=== PATIENT | female | born 1985 | race African-American/Black ===

== ENCOUNTER 2017-01-29 18:20 | Emergency (ER) | payer OTHER ==
[2017-01-29] MEDS ORDERED: Ibuprofen 200 MG TAB ONE (18:48)
--- NOTE | 2017-01-29 20:41 | RAD ---
THREE VIEWS LEFT FOOT: History: [place] fell on top of foot. Pain. Comparison: None. FINDINGS: Lisfranc alignment is maintained. Joint spaces are preserved. No fracture. No cortical irregularity or periosteal reaction. Dorsal midfoot soft tissue swelling is noted. IMPRESSION: 1. No fracture. 2. Dorsal midfoot soft tissue swelling. POS: [facility]
== END 2017-01-29 19:10 | disposition home or self-care (01) ==
LOC: ERS 18:20
DX: S93.602A Unspecified sprain of left foot, initial encounter (principal)

== ENCOUNTER 2017-12-07 07:49 | Emergency (ER) | payer OTHER | END 2017-12-07 09:20 | disposition home or self-care (01) | LOC: ERS 07:49 | DX: H61.22 Impacted cerumen, left ear (principal) | CPT/HCPCS: 69210 ==

== ENCOUNTER 2019-10-23 22:34 | Emergency (ER) | payer OTHER | END 2019-10-23 23:03 | disposition home or self-care (01) | LOC: ERS 22:34 | DX: S50.12XA Contusion of left forearm, initial encounter (principal); W23.0XXA Caught, crushed, jammed, or pinched between moving objects, initial encounter | CPT/HCPCS: 99283 ==

== ENCOUNTER 2020-03-09 17:08 | Emergency (ER) | payer OTHER ==
--- NOTE | 2020-03-09 17:42 | RAD ---
EXAM: 4 views of the left knee HISTORY: Knee pain after fall COMPARISON: None FINDINGS: No knee effusion is seen. There is no evidence of acute fracture or dislocation. No signifi cant degenerative changes are seen. A small bony excrescence projects off the proximal left fibula. Mild lateral soft tissue swelling is present. IMPRESSION: No evidence of acute osseous abnormality.
== END 2020-03-09 18:06 | disposition home or self-care (01) ==
LOC: ERS 17:08
DX: S80.02XA Contusion of left knee, initial encounter (principal); W19.XXXA Unspecified fall, initial encounter

== ENCOUNTER 2021-08-30 14:26 | Emergency (ER) | payer OTHER | END 2021-08-30 17:58 | disposition home or self-care (01) | LOC: ERS 14:26 | DX: M65.88 Other synovitis and tenosynovitis, other site (principal) ==

== ENCOUNTER 2023-09-04 19:30 | Emergency (ER) | payer SELFPAY ==
[2023-09-04 20:58] LABS: #Basophils 0.03 10x3/uL (0.0-0.2); %Basophils 0.2 % (0.0-1.0); %Eosinophils 0.4 % (0.0-10.0); %Lymphocytes 12.9 % (21.0-51.0); %Monocytes 7.9 % (0.0-10.0); %Neutrophils 78.2 % (42.0-75.0); Hematocrit 40.3 % (36.0-47.0); Hemoglobin 13.5 g/dL (12.0-16.0); Mean Corpuscular HGB CONC 33.5 g/dL (32.0-36.0); Mean Corpuscular Hemoglobin 25.9 pg (27.0-31.0); Mean Corpuscular Volume 77.4 fL (78.0-98.0); Mean Platelet Volume 10.1 fL (7.4-10.4); Platelet Count 290 10x3/uL (130-400); RBC Distribution Width 14.8 % (11.5-14.5); Red Blood Cell (RBC) Count 5.21 mill/uL (4.20-5.40)
[2023-09-04] MEDS ORDERED: Ketorolac Tromethamine 30 MG (1 mL) VIAL ONE (21:01)
[2023-09-04 21:14] LABS: ALT (SGPT) 17 U/L (8-55); AST (SGOT) 15 U/L (5-34); Albumin 3.8 g/dL (3.5-5.0); Alkaline Phosphatase 127 U/L (40-110); Anion Gap 15 mmol/L (10-20); BUN (Urea Nitrogen) 8 mg/dL (7.0-18.7); Bilirubin, Total 1.1 mg/dL (0.2-1.2); Calc. Creatinine Clearance 0 mL/min (70-130); Calcium 9.2 mg/dL (7.8-10.44); Carbon Dioxide 23 mmol/L (22-29); Chloride 106 mmol/L (98-107); Estimated GFR 99; Globulin 3.6 g/dL (2.4-3.5); Glucose 94 mg/dL (70-105); Lipase 11 U/L (8-78); Protein, Total 7.4 g/dL (6.0-8.3); Sodium 140 mmol/L (136-145)
[2023-09-04 21:18] LABS: Troponin I Less than 0.010 ng/mL (< 0.028)
== END 2023-09-04 21:53 | disposition home or self-care (01) ==
LOC: ERS 19:30
DX: M62.838 Other muscle spasm (principal)
CPT/HCPCS: 71045; 80053; 83690; 83880; 84484; 85025; 93005; 96374; J1885

== ENCOUNTER 2024-04-25 12:14 | Emergency (ER) | payer OTHER, SELFPAY | END 2024-04-25 13:53 | disposition home or self-care (01) | LOC: ERS 12:14 | DX: J11.1 Influenza due to unidentified influenza virus with other respiratory manifestations (principal) | CPT/HCPCS: 87428; 99283 ==

== ENCOUNTER 2024-11-09 01:59 | Inpatient (IN) | payer OTHER ==
[2024-11-09 03:05] LABS: #Basophils 0.06 10x3/uL (0.0-0.2); #Eosinophils 2.03 10x3/uL (0.0-0.7); #Monocytes 1.27 10x3/uL (0.11-0.59); #Neutrophils 11.27 10x3/uL (1.40-6.50); %Basophils 0.4 % (0.0-1.0); %Eosinophils 12.0 % (0.0-10.0); %Lymphocytes 12.8 % (21.0-51.0); %Monocytes 7.5 % (0.0-10.0); %Neutrophils 66.9 % (42.0-75.0); Hematocrit 38.9 % (36.0-47.0); Hemoglobin 12.7 g/dL (12.0-16.0); Mean Corpuscular Hemoglobin 24.5 pg (27.0-31.0); Mean Corpuscular Volume 75.1 fL (78.0-98.0); Platelet Count 360 10x3/uL (130-400); Red Blood Cell (RBC) Count 5.18 mill/uL (4.20-5.40); White Blood Cell (WBC) Count 16.85 10x3/uL (4.8-10.8)
[2024-11-09 03:19] LABS: BHCG - Serum Negative (NEGATIVE); Pregs Control Background? CLEAR/WHITE (CLR/WHITE); Pregs Control Bar Appear? YES (CONTROL BAR)
[2024-11-09] MEDS ORDERED: Ketorolac Tromethamine 30 MG (1 mL) VIAL ONE (03:55)
[2024-11-09 04:06] LABS: ALT (SGPT) 49 U/L (Less than 34); AST (SGOT) 65 U/L (11-34); Albumin 3.4 g/dL (3.1-4.5); Alkaline Phosphatase 180 U/L (40-110); Anion Gap 16 mmol/L (10-20); BUN (Urea Nitrogen) 5 mg/dL (7.0-18.7); Bilirubin, Total 0.6 mg/dL (0.3-1.2); Calc. Creatinine Clearance 0 mL/min (70-130); Calcium 8.7 mg/dL (7.8-10.44); Carbon Dioxide 22 mmol/L (22-29); Chloride 105 mmol/L (98-107); Globulin 3.8 g/dL (2.4-3.5); Glucose 116 mg/dL (70-105); Lipase 13 U/L (8-78); Potassium 3.8 mmol/L (3.5-5.1); Sodium 139 mmol/L (136-145)
[2024-11-09] MEDS ORDERED: Aspirin Chewable 81 MG TAB ONE (04:26)
[2024-11-09 06:18] VITALS: BMI 49.1
[2024-11-09] MEDS ORDERED: Ondansetron ORAL SOLN. 4 MG/5 ML UDCUP PO PRN (06:45)
[2024-11-09 07:40] LABS: Hematocrit 39.5 % (36.0-47.0); Hemoglobin 12.5 g/dL (12.0-16.0); Platelet Count 334 10x3/uL (130-400)
[2024-11-09] MEDS: Heparin 10,000 UNITS/ 10 ML VIAL SLOW IVP SCH (08:19)
[2024-11-09] MEDS: Rosuvastatin 20 MG TAB PO ONE (09:21)
[2024-11-09] MEDS ORDERED: Iopamidol 370 76% 100 ML VIAL ONE (10:20)
[2024-11-09] MEDS ORDERED: EPINEPHrine 1 MG/10 ML Abboject SYRINGE ONE (10:39)
[2024-11-09] MEDS ORDERED: Adenosine 6 mg (2 mL) VIAL ONE (10:39)
[2024-11-09] MEDS ORDERED: PHENYLEPHRINE-NS 100 MCG/ML 10 ML SYRINGE ONE (10:40)
[2024-11-09] MEDS ORDERED: Lidocaine 1% (PF) 30 ML VIAL ONE (10:40)
[2024-11-09] MEDS ORDERED: Nitroglycerin 50 MG/250 ML BOT 250 ML ONE (10:40)
[2024-11-09] MEDS ORDERED: Heparin 10,000 UNITS/ 10 ML VIAL ONE (10:40)
[2024-11-09] MEDS: Acetaminophen 500 MG TAB PO SCH (13:35)
[2024-11-09] MEDS: Rosuvastatin 20 MG TAB PO SCH (22:14)
[2024-11-10] MEDS: Cyclobenzaprine 10 MG TAB PO SCH (00:14)
[2024-11-10 04:04] LABS: #Basophils 0.05 10x3/uL (0.0-0.2); #Eosinophils 1.16 10x3/uL (0.0-0.7); #Monocytes 1.21 10x3/uL (0.11-0.59); #Neutrophils 10.72 10x3/uL (1.40-6.50); %Basophils 0.3 % (0.0-1.0); %Eosinophils 7.6 % (0.0-10.0); %Lymphocytes 14.1 % (21.0-51.0); %Monocytes 7.9 % (0.0-10.0); %Neutrophils 69.8 % (42.0-75.0); Hematocrit 39.8 % (36.0-47.0); Hemoglobin 12.5 g/dL (12.0-16.0); Mean Corpuscular Hemoglobin 23.8 pg (27.0-31.0); Mean Corpuscular Volume 75.8 fL (78.0-98.0); Platelet Count 346 10x3/uL (130-400); Red Blood Cell (RBC) Count 5.25 mill/uL (4.20-5.40); White Blood Cell (WBC) Count 15.36 10x3/uL (4.8-10.8)
[2024-11-10 04:38] LABS: ALT (SGPT) 37 U/L (Less than 34); AST (SGOT) 51 U/L (11-34); Albumin 3.1 g/dL (3.1-4.5); Alkaline Phosphatase 154 U/L (40-110); Anion Gap 14 mmol/L (10-20); BUN (Urea Nitrogen) 6 mg/dL (7.0-18.7); Bilirubin, Total 0.6 mg/dL (0.3-1.2); Calc. Creatinine Clearance 217 mL/min (70-130); Calcium 8.9 mg/dL (7.8-10.44); Carbon Dioxide 26 mmol/L (22-29); Chloride 104 mmol/L (98-107); Globulin 3.5 g/dL (2.4-3.5); Glucose 109 mg/dL (70-105); Potassium 4.0 mmol/L (3.5-5.1); Sodium 140 mmol/L (136-145)
[2024-11-10 06:45] LABS: CK (CPK) 347.0 U/L (29-168); Cardiac Risk 5.9 (Less than 4.5); Cholesterol 170.0 mg/dl (< 200 Desired); HDL Cholesterol 29.0 mg/dL (>60 Neg Risk); LDL Cholesterol, Calculated 109.0 mg/dL; Triglycerides 161.0 mg/dL (Less than 150)
[2024-11-10] MEDS: Aspirin 81 mg Enteric Coated Tablet PO SCH (08:43)
[2024-11-10] MEDS: Acetaminophen 325 MG TAB PO SCH (20:48)
[2024-11-11 05:10] LABS: #Basophils 0.05 10x3/uL (0.0-0.2); #Eosinophils 1.14 10x3/uL (0.0-0.7); #Monocytes 1.15 10x3/uL (0.11-0.59); #Neutrophils 8.86 10x3/uL (1.40-6.50); %Basophils 0.4 % (0.0-1.0); %Eosinophils 8.4 % (0.0-10.0); %Lymphocytes 17.5 % (21.0-51.0); %Monocytes 8.4 % (0.0-10.0); %Neutrophils 64.9 % (42.0-75.0); Hematocrit 40.5 % (36.0-47.0); Hemoglobin 12.8 g/dL (12.0-16.0); Mean Corpuscular Hemoglobin 24.1 pg (27.0-31.0); Mean Corpuscular Volume 76.1 fL (78.0-98.0); Platelet Count 341 10x3/uL (130-400); Red Blood Cell (RBC) Count 5.32 mill/uL (4.20-5.40); White Blood Cell (WBC) Count 13.64 10x3/uL (4.8-10.8)
[2024-11-11 05:41] LABS: ALT (SGPT) 28 U/L (Less than 34); AST (SGOT) 30 U/L (11-34); Albumin 3.2 g/dL (3.1-4.5); Alkaline Phosphatase 150 U/L (40-110); Anion Gap 14 mmol/L (10-20); BUN (Urea Nitrogen) 9 mg/dL (7.0-18.7); Bilirubin, Total 0.4 mg/dL (0.3-1.2); Calc. Creatinine Clearance 245 mL/min (70-130); Calcium 8.7 mg/dL (7.8-10.44); Carbon Dioxide 25 mmol/L (22-29); Chloride 106 mmol/L (98-107); Globulin 3.1 g/dL (2.4-3.5); Glucose 101 mg/dL (70-105); Potassium 3.7 mmol/L (3.5-5.1); Sodium 141 mmol/L (136-145)
[2024-11-11] MEDS: Acetaminophen 325 MG TAB PO PRN (09:51)
[2024-11-11] MEDS: Metoprolol Succinate XL 25 MG ER.TAB PO SCH (18:38)
[2024-11-11] MEDS: Colchicine 0.6 MG TAB PO SCH (20:23)
[2024-11-12 04:08] LABS: #Basophils 0.04 10x3/uL (0.0-0.2); #Eosinophils 1.12 10x3/uL (0.0-0.7); #Monocytes 0.98 10x3/uL (0.11-0.59); #Neutrophils 10.33 10x3/uL (1.40-6.50); %Basophils 0.3 % (0.0-1.0); %Eosinophils 7.6 % (0.0-10.0); %Lymphocytes 15.2 % (21.0-51.0); %Monocytes 6.6 % (0.0-10.0); %Neutrophils 69.8 % (42.0-75.0); Hematocrit 40.8 % (36.0-47.0); Hemoglobin 13.0 g/dL (12.0-16.0); Mean Corpuscular Hemoglobin 24.1 pg (27.0-31.0); Mean Corpuscular Volume 75.7 fL (78.0-98.0); Platelet Count 345 10x3/uL (130-400); Red Blood Cell (RBC) Count 5.39 mill/uL (4.20-5.40); White Blood Cell (WBC) Count 14.79 10x3/uL (4.8-10.8)
[2024-11-12 04:24] LABS: ALT (SGPT) 27 U/L (Less than 34); AST (SGOT) 27 U/L (11-34); Albumin 3.2 g/dL (3.1-4.5); Alkaline Phosphatase 146 U/L (40-110); Anion Gap 13 mmol/L (10-20); BUN (Urea Nitrogen) 8 mg/dL (7.0-18.7); Bilirubin, Total 0.4 mg/dL (0.3-1.2); Calc. Creatinine Clearance 245 mL/min (70-130); Calcium 8.6 mg/dL (7.8-10.44); Carbon Dioxide 24 mmol/L (22-29); Chloride 107 mmol/L (98-107); Globulin 3.1 g/dL (2.4-3.5); Glucose 111 mg/dL (70-105); Potassium 4.1 mmol/L (3.5-5.1); Sodium 140 mmol/L (136-145)
[2024-11-12] MEDS: Metoprolol Succinate XL 25 MG ER.TAB PO SCH (09:27)
[2024-11-12 21:11] VITALS: BP 124/81; TEMP 98.5
== END 2024-11-12 21:15 | disposition home or self-care (01) | DRG 281 ==
LOC: ERS 01:59 → 2SE 05:04
PROVIDERS: ADMIT Family Medicine; ATTEND Family Medicine
PROC: B2151ZZ Fluoroscopy of Left Heart using Low Osmolar Contrast (ICD-10-PCS; principal; 2024-11-09)
PROC: B2111ZZ Fluoroscopy of Multiple Coronary Arteries using Low Osmolar Contrast (ICD-10-PCS; 2024-11-09)
PROC: 3E033XZ Introduction of Vasopressor into Peripheral Vein, Percutaneous Approach (ICD-10-PCS; 2024-11-09)
DX: R07.2 Precordial pain (principal); I31.9 Disease of pericardium, unspecified; I21.4 Non-ST elevation (NSTEMI) myocardial infarction; Z83.3 Family history of diabetes mellitus; Z80.41 Family history of malignant neoplasm of ovary; Z98.890 Other specified postprocedural states; D72.829 Elevated white blood cell count, unspecified; K21.9 Gastro-esophageal reflux disease without esophagitis; I10 Essential (primary) hypertension; R00.0 Tachycardia, unspecified; Z79.899 Other long term (current) drug therapy; Z98.51 Tubal ligation status; Z86.711 Personal history of pulmonary embolism; Z86.718 Personal history of other venous thrombosis and embolism; R03.0 Elevated blood-pressure reading, without diagnosis of hypertension; R59.0 Localized enlarged lymph nodes
CPT/HCPCS: 36415; 71045; 71275; 80053; 80061; 82550; 83690; 83880; 84443; 84484; 84703; 85025; 85730; 93005; 93306; 93454; 96374; 99152; 99153; C1894; J0153; J0165; J0461; J1644; J1885; J2250; J3010; Q0162; Q9967